=== PATIENT | female | born 1995 | race Caucasian/White ===

== ENCOUNTER 2019-02-14 09:43 | Emergency (ER) | payer OTHER ==
[~2019-02-14] VITALS: Ht 154.9 cm; Wt 74.0 kg
[2019-02-14 09:46] VITALS: BP 112/60; PULSE 74; RESP 18; Ht 154.9 cm; Wt 74.0 kg
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
== END 2019-02-14 11:03 | disposition home or self-care (01) ==
LOC: FTE 09:43
DX: M54.9 Dorsalgia, unspecified (principal)
CPT/HCPCS: 99282